=== PATIENT | female | born 1950 | race African-American/Black ===

== ENCOUNTER 2019-05-26 20:04 | Observation (INO) ==
[2019-05-26 20:30] LABS: Basophils % 0.4 % (0.0-0.8); Eosinophils % 0.3 % (0.00-10.9); Hematocrit 33.3 VOL% (35.7-47.0); Hemoglobin 10.9 GM/DL (12.0-16.0); Immature Granulocytes Absolute 0.07 #; Lymphocytes # 1.4 10*3/uL (1.4-4.0); Lymphocytes % 18.7 % (21.3-54.2); Mean Corpuscular HGB Conc 32.7 GM/DL (32-36); Mean Platelet Volume 9.8 FL (9.6-12.0); Monocytes % 5.9 % (1.7-12.7); NRBC # 0.06 10*3/uL; Neutrophils % 73.7 % (38.7-73.9); Platelet Count 271 T/CUMM (130-400); Red Blood Count 3.33 MC/CUMM (3.8-5.5); White Blood Count 7.3 T/CUMM (4-12)
[2019-05-26 21:16] LABS: Alanine Aminotransferase 29 U/L (13-56); Alkaline Phosphatase 30 U/L (45-117); Aspartate Amino Transferase 26 U/L (0-37); Blood Urea Nitrogen 24 MG/DL (7-18); Calcium 9.8 MG/DL (8.5-10.1); Estimated Glom Filtration Rate 33 ML/MIN; Glucose 103 MG/DL (74-106)
[2019-05-26 21:19] LABS: Troponin I 0.086 NG/ML (0.00-0.045)
[2019-05-26] MEDS ORDERED: ENOXAPARIN 100 MG/ML SYRINGE SUBCUT ONE (21:29)
[2019-05-26] MEDS ORDERED: ALBUTEROL/IPRATROPIUM 3 ML NEB RESP TX STA (21:29)
[2019-05-26] MEDS ORDERED: ONDANSETRON 4 MG/2 ML VIAL IV PRN (21:38)
[2019-05-26] MEDS ORDERED: ACETAMINOPHEN 325 MG TABLET PO PRN (21:38)
[2019-05-26] MEDS ORDERED: SIMVASTATIN 10 MG TABLET PO SCH (23:30)
[2019-05-27] MEDS: DILTIAZEM CD 120 MG CAPSULE PO SCH ×2 (00:19→11:15)
[2019-05-27] MEDS: cycloSPORINE OPH EMUL 1 VIAL BOTH EYES SCH ×2 (00:20→11:17)
[2019-05-27 06:51] LABS: Basophils % 0.3 % (0.0-0.8); Eosinophils % 0.6 % (0.00-10.9); Hematocrit 31.6 VOL% (35.7-47.0); Hemoglobin 10.3 GM/DL (12.0-16.0); Immature Granulocytes % 0.8 %; Immature Granulocytes Absolute 0.06 #; Lymphocytes # 2.6 10*3/uL (1.4-4.0); Lymphocytes % 35.8 % (21.3-54.2); Mean Corpuscular HGB Conc 32.6 GM/DL (32-36); Mean Platelet Volume 9.6 FL (9.6-12.0); Monocytes % 5.9 % (1.7-12.7); NRBC # 0.03 10*3/uL; Neutrophils % 56.6 % (38.7-73.9); Platelet Count 241 T/CUMM (130-400); Red Blood Count 3.16 MC/CUMM (3.8-5.5); Red Cell Distribution Width 13.2 % (9.3-17.3); White Blood Count 7.2 T/CUMM (4-12)
[2019-05-27 07:14] LABS: Albumin 3.6 G/DL (3.4-5.0); Bilirubin,Total 0.5 MG/DL (0.2-1.0); Calcium 8.9 MG/DL (8.5-10.1); Osmolality,Calculated 290.7 MOS/KG (273-304); Risk Ratio 2.45; Total Protein 6.6 G/DL (6.4-8.3); VLDL CHOLESTEROL 34.2 MG/DL
[2019-05-27] MEDS ORDERED: carvediloL 25 MG TABLET PO SCH (08:00)
[2019-05-27 08:11] VITALS: BP 151/86
[2019-05-27] MEDS ORDERED: predniSONE 5 MG TABLET PO SCH (09:00)
[2019-05-27] MEDS ORDERED: METHOCARBAMOL 500 MG TABLET PO SCH (09:00)
[2019-05-27] MEDS ORDERED: DROXIDOPA 200 MG PO SCH (09:00)
[2019-05-27] MEDS ORDERED: AMITRIPTYLINE 50 MG TABLET PO SCH (09:00)
[2019-05-27] MEDS ORDERED: MONTELUKAST 10 MG TABLET PO SCH (09:00)
[2019-05-27] MEDS ORDERED: ESCITALOPRAM 10 MG TABLET PO SCH (09:00)
[2019-05-27] MEDS ORDERED: METOCLOPRAMIDE 5 MG TABLET PO SCH (09:00)
[2019-05-27] MEDS ORDERED: DULoxetine 30 MG CAPSULE PO SCH (09:00)
[2019-05-27] MEDS ORDERED: PILOCARPINE 5 MG TABLET PO SCH (09:00)
[2019-05-27] MEDS ORDERED: PANTOPRAZOLE 40 MG TABLET PO SCH (09:00)
[2019-05-27] MEDS ORDERED: PYRIDOSTIGMINE 60 MG TABLET PO SCH (09:00)
[2019-05-27] MEDS ORDERED: ALLOPURINOL 300 MG TABLET PO SCH (09:00)
[2019-05-27] MEDS ORDERED: REGADENOSON 0.4 MG/5 ML SYRINGE IV ONE (09:53)
== END 2019-05-27 14:34 | disposition home or self-care (01) ==
LOC: N.ED 20:04 → N.EDINP 21:38 → INTOOBSV 21:38 → N.TELES 22:50
PROVIDERS: ADMIT Hospitalist; ATTEND Hospitalist

== ENCOUNTER 2019-05-27 18:26 | Inpatient (IN) ==
[2019-05-27] MEDS ORDERED: DOCUSATE SODIUM 100 MG CAPSULE PO PRN (19:03)
[2019-05-27] MEDS ORDERED: ONDANSETRON 4 MG/2 ML VIAL IV PRN (19:03)
[2019-05-27] MEDS ORDERED: ACETAMINOPHEN 325 MG TABLET PO PRN (19:03)
[2019-05-27 20:16] LABS: Basophils % 0.2 % (0.0-0.8); Eosinophils % 0.2 % (0.00-10.9); Hematocrit 31.4 VOL% (35.7-47.0); Hemoglobin 10.3 GM/DL (12.0-16.0); Immature Granulocytes % 0.7 %; Immature Granulocytes Absolute 0.06 #; Lymphocytes # 1.6 10*3/uL (1.4-4.0); Lymphocytes % 19.4 % (21.3-54.2); Mean Corpuscular HGB Conc 32.8 GM/DL (32-36); Mean Platelet Volume 10.2 FL (9.6-12.0); Monocytes % 6.6 % (1.7-12.7); NRBC # 0.07 10*3/uL; Neutrophils % 72.9 % (38.7-73.9); Platelet Count 269 T/CUMM (130-400); Red Blood Count 3.14 MC/CUMM (3.8-5.5); Red Cell Distribution Width 13.5 % (9.3-17.3); White Blood Count 8.3 T/CUMM (4-12)
[2019-05-27 20:39] LABS: Alanine Aminotransferase 30 U/L (13-56); Albumin 3.8 G/DL (3.4-5.0); Alkaline Phosphatase 28 U/L (45-117); Aspartate Amino Transferase 26 U/L (0-37); Bilirubin,Total < 0.39 MG/DL (0.2-1.0); Blood Urea Nitrogen 27 MG/DL (7-18); Estimated Glom Filtration Rate 34 ML/MIN; Glucose 107 MG/DL (74-106); Osmolality,Calculated 287.1 MOS/KG (273-304); Total Protein 6.9 G/DL (6.4-8.3)
[2019-05-27] MEDS: cycloSPORINE OPH EMUL 1 VIAL BOTH EYES SCH (21:32)
[2019-05-27] MEDS: DILTIAZEM CD 120 MG CAPSULE PO SCH (21:32)
[2019-05-27] MEDS: METOCLOPRAMIDE 5 MG TABLET PO SCH (21:33)
[2019-05-27] MEDS: carvediloL 25 MG TABLET PO SCH (21:33)
[2019-05-27] MEDS: SIMVASTATIN 10 MG TABLET PO SCH (21:34)
[2019-05-28] MEDS: SODIUM CHLORIDE 0.9% 1,000 ML IV SCH ×3 (05:11→19:01)
[2019-05-28 05:31] LABS: Basophils % 0.5 % (0.0-0.8); Eosinophils % 0.5 % (0.00-10.9); Hematocrit 31.2 VOL% (35.7-47.0); Hemoglobin 10.2 GM/DL (12.0-16.0); Immature Granulocytes % 0.9 %; Immature Granulocytes Absolute 0.07 #; Lymphocytes # 2.7 10*3/uL (1.4-4.0); Mean Corpuscular HGB Conc 32.7 GM/DL (32-36); Mean Platelet Volume 9.8 FL (9.6-12.0); Monocytes % 7.6 % (1.7-12.7); NRBC # 0.05 10*3/uL; Neutrophils % 56.5 % (38.7-73.9); Platelet Count 244 T/CUMM (130-400); Red Blood Count 3.09 MC/CUMM (3.8-5.5); Red Cell Distribution Width 13.5 % (9.3-17.3)
[2019-05-28 05:53] LABS: Albumin 3.6 G/DL (3.4-5.0); Bilirubin,Total 0.4 MG/DL (0.2-1.0); Calcium 9.2 MG/DL (8.5-10.1); Total Protein 6.5 G/DL (6.4-8.3)
[2019-05-28] MEDS ORDERED: DROXIDOPA PO SCH (09:00)
[2019-05-28] MEDS ORDERED: PILOCARPINE 5 MG TABLET PO SCH (09:00)
[2019-05-28] MEDS: carvediloL 25 MG TABLET PO SCH ×2 (09:32→17:06)
[2019-05-28] MEDS: AMITRIPTYLINE 50 MG TABLET PO SCH (09:32)
[2019-05-28] MEDS: METOCLOPRAMIDE 5 MG TABLET PO SCH ×2 (09:32→17:06)
[2019-05-28] MEDS: METHOCARBAMOL 500 MG TABLET PO SCH (09:33)
[2019-05-28] MEDS: ESCITALOPRAM 10 MG TABLET PO SCH (09:33)
[2019-05-28] MEDS: DULoxetine 30 MG CAPSULE PO SCH (09:33)
[2019-05-28] MEDS: PANTOPRAZOLE 40 MG TABLET PO SCH (09:33)
[2019-05-28] MEDS: DILTIAZEM CD 120 MG CAPSULE PO SCH ×2 (09:33→21:00)
[2019-05-28] MEDS: ALLOPURINOL 300 MG TABLET PO SCH (09:34)
[2019-05-28] MEDS: predniSONE 5 MG TABLET PO SCH (09:34)
[2019-05-28] MEDS: PYRIDOSTIGMINE 60 MG TABLET PO SCH (09:34)
[2019-05-28] MEDS: MONTELUKAST 10 MG TABLET PO SCH (09:34)
[2019-05-28] MEDS: ENOXAPARIN 40 MG/0.4 ML SYRINGE SUBCUT SCH (09:34)
[2019-05-28] MEDS: cycloSPORINE OPH EMUL 1 VIAL BOTH EYES SCH ×2 (09:38→20:59)
[2019-05-28] MEDS: APIXABAN 5 MG TABLET PO SCH ×2 (11:00→21:00)
[2019-05-28] MEDS: PILOCARPINE 5 MG TABLET PO SCH ×3 (16:04→21:01)
[2019-05-28] MEDS: SIMVASTATIN 10 MG TABLET PO SCH (21:00)
[2019-05-28] MEDS: DROXIDOPA 200 MG PO SCH (21:01)
[2019-05-29 07:52] LABS: Basophils % 0.4 % (0.0-0.8); Eosinophils # 0.1 10*3/uL (0.0-0.87); Hematocrit 30.9 VOL% (35.7-47.0); Hemoglobin 10.1 GM/DL (12.0-16.0); Immature Granulocytes Absolute 0.07 #; Lymphocytes # 2.3 10*3/uL (1.4-4.0); Lymphocytes % 32.8 % (21.3-54.2); Mean Corpuscular HGB Conc 32.7 GM/DL (32-36); Mean Corpuscular Volume 100.3 FL (87-102); Mean Platelet Volume 10.1 FL (9.6-12.0); NRBC # 0.04 10*3/uL; Neutrophils % 55.8 % (38.7-73.9); Platelet Count 259 T/CUMM (130-400); Red Blood Count 3.08 MC/CUMM (3.8-5.5)
[2019-05-29 08:14] LABS: Calcium 8.9 MG/DL (8.5-10.1); Osmolality,Calculated 290.6 MOS/KG (273-304)
[2019-05-29] MEDS ORDERED: FUROSEMIDE 20 MG TABLET PO SCH (09:00)
[2019-05-29] MEDS: PILOCARPINE 5 MG TABLET PO SCH ×2 (09:30→13:57)
[2019-05-29] MEDS: DROXIDOPA 200 MG PO SCH (09:30)
[2019-05-29] MEDS: APIXABAN 5 MG TABLET PO SCH (09:31)
[2019-05-29] MEDS: PANTOPRAZOLE 40 MG TABLET PO SCH (09:31)
[2019-05-29] MEDS: ALLOPURINOL 300 MG TABLET PO SCH (09:31)
[2019-05-29] MEDS: DULoxetine 30 MG CAPSULE PO SCH (09:31)
[2019-05-29] MEDS: METHOCARBAMOL 500 MG TABLET PO SCH (09:32)
[2019-05-29] MEDS: METOCLOPRAMIDE 5 MG TABLET PO SCH (09:32)
[2019-05-29] MEDS: PYRIDOSTIGMINE 60 MG TABLET PO SCH (09:32)
[2019-05-29] MEDS: MONTELUKAST 10 MG TABLET PO SCH (09:32)
[2019-05-29] MEDS: AMITRIPTYLINE 50 MG TABLET PO SCH (09:32)
[2019-05-29] MEDS: carvediloL 25 MG TABLET PO SCH (09:32)
[2019-05-29] MEDS: DILTIAZEM CD 120 MG CAPSULE PO SCH (09:32)
[2019-05-29] MEDS: ESCITALOPRAM 10 MG TABLET PO SCH (09:33)
[2019-05-29] MEDS: predniSONE 5 MG TABLET PO SCH (09:33)
[2019-05-29] MEDS: ENOXAPARIN 40 MG/0.4 ML SYRINGE SUBCUT SCH (09:33)
[2019-05-29] MEDS: cycloSPORINE OPH EMUL 1 VIAL BOTH EYES SCH (09:44)
[2019-05-29 13:08] VITALS: BP 119/64
== END 2019-05-29 13:53 | disposition home or self-care (01) | DRG 176 ==
LOC: N.TELEN
PROVIDERS: ADMIT Hospitalist; ATTEND Hospitalist

== ENCOUNTER 2019-08-18 16:20 | Inpatient (IN) ==
[2019-08-18] MEDS ORDERED: PANTOPRAZOLE 40 MG VIAL IV STA (17:34)
[2019-08-18] MEDS ORDERED: METOCLOPRAMIDE 10 MG/2 ML VIAL IV STA (17:34)
[2019-08-18] MEDS ORDERED: ONDANSETRON 4 MG/2 ML VIAL IV STA (17:34)
[2019-08-18] MEDS ORDERED: ALUM/MAG/SIMETH/LIDO VISC 1:1 30 ML BOTTLE PO STA (17:34)
[2019-08-18] MEDS ORDERED: SODIUM CHLORIDE 0.9% 1,000 ML IV STA (17:34)
[2019-08-18 17:47] LABS: Albumin 3.6 G/DL (3.4-5.0); Bilirubin,Total 0.8 MG/DL (0.2-1.0); Calcium 9.6 MG/DL (8.5-10.1); Osmolality,Calculated 285.3 MOS/KG (273-304); Total Protein 6.6 G/DL (6.4-8.3)
[2019-08-18 17:48] LABS: Basophils % 0.4 % (0.0-0.8); Eosinophils % 0.1 % (0.00-10.9); Hematocrit 33.5 VOL% (35.7-47.0); Hemoglobin 10.9 GM/DL (12.0-16.0); Immature Granulocytes % 0.4 %; Immature Granulocytes Absolute 0.03 #; Lymphocytes # 1.1 10*3/uL (1.4-4.0); Mean Corpuscular HGB Conc 32.5 GM/DL (32-36); Mean Corpuscular Volume 101.2 FL (87-102); Mean Platelet Volume 9.9 FL (9.6-12.0); Monocytes % 5.3 % (1.7-12.7); Neutrophils % 79.8 % (38.7-73.9); Platelet Count 292 T/CUMM (130-400); Red Blood Count 3.31 MC/CUMM (3.8-5.5); Red Cell Distribution Width 14.4 % (9.3-17.3); White Blood Count 7.6 T/CUMM (4-12)
[2019-08-18 18:02] LABS: Amylase 90 U/L (25-115); Troponin I < 0.015 NG/ML (0.00-0.045)
[2019-08-18] MEDS ORDERED: hydrALAZINE 20 MG/1 ML VIAL IV PRN (19:57)
[2019-08-18] MEDS ORDERED: cycloSPORINE OPH EMUL 1 VIAL BOTH EYES SCH (20:00)
[2019-08-18] MEDS ORDERED: ENOXAPARIN 30 MG/0.3 ML SYRINGE SUBCUT SCH (20:00)
[2019-08-18 20:55] LABS: Apearance,Urine CLEAR (Clear); Bacteria,Urine Occasional /HPF (Few); Bilirubin,Urine Negative (Negative); Blood, Urine Negative (Negative); Calcium Oxalate Crystals,Urine Occasional /HPF (Few); Glucose,Urine (UA) Negative (Negative); Ketones,Urine Negative (Negative); Mucus,Urine Occasional /LPF (Occasional); Nitrite,Urine Negative (Negative); Protein,Urine Negative; RBC,Urine 2 /HPF (0-4); Squamous Epithelial Cell,Urine Occasional /HPF (0-10); Urine Color Amber (Yellow); Urine Specific Gravity 1.025 (1.001-1.035); Urine Urobilinogen < 2.0 EU/DL (0.2-1.0); WBC,Urine 3 /HPF (0-6)
[2019-08-18 21:02] LABS: Thyroid Stimulating Hormone 0.909 uIU/ml (0.358-3.74)
[2019-08-18] MEDS: MORPHINE 4 MG/1 ML VIAL IV PRN (21:02)
[2019-08-18] MEDS: AMITRIPTYLINE 50 MG TABLET PO SCH (22:59)
[2019-08-18] MEDS: DILTIAZEM CD 120 MG CAPSULE PO SCH (22:59)
[2019-08-18] MEDS: SIMVASTATIN 10 MG TABLET PO SCH (22:59)
[2019-08-18] MEDS: APIXABAN 5 MG TABLET PO SCH (22:59)
[2019-08-18] MEDS: SODIUM CHLORIDE 0.9% 1,000 ML IV SCH (23:00)
[2019-08-18] MEDS: carvediloL 25 MG TABLET PO SCH (23:00)
[2019-08-18] MEDS: cycloSPORINE OPH EMUL 1 VIAL BOTH EYES SCH (23:00)
[2019-08-18] MEDS: PILOCARPINE 5 MG TABLET PO SCH (23:02)
[2019-08-19] MEDS: MORPHINE 4 MG/1 ML VIAL IV PRN ×5 (02:20→22:31)
[2019-08-19] MEDS: LEVOTHYROXINE 50 MCG TABLET PO SCH (05:41)
[2019-08-19] MEDS: SODIUM CHLORIDE 0.9% 1,000 ML IV SCH (06:01)
[2019-08-19 06:39] LABS: Basophils % 0.3 % (0.0-0.8); Eosinophils # 0.1 10*3/uL (0.0-0.87); Hematocrit 27.8 VOL% (35.7-47.0); Immature Granulocytes % 0.3 %; Immature Granulocytes Absolute 0.02 #; Lymphocytes % 32.4 % (21.3-54.2); Mean Corpuscular HGB Conc 32.4 GM/DL (32-36); Mean Corpuscular Volume 100.4 FL (87-102); Mean Platelet Volume 9.9 FL (9.6-12.0); Monocytes % 11.1 % (1.7-12.7); Neutrophils % 54.9 % (38.7-73.9); Platelet Count 218 T/CUMM (130-400); Red Blood Count 2.77 MC/CUMM (3.8-5.5); Red Cell Distribution Width 14.8 % (9.3-17.3); White Blood Count 6.1 T/CUMM (4-12)
[2019-08-19 06:59] LABS: Albumin 2.8 G/DL (3.4-5.0); Bilirubin,Total 1.1 MG/DL (0.2-1.0); Calcium 8.6 MG/DL (8.5-10.1); Osmolality,Calculated 287.8 MOS/KG (273-304); Risk Ratio 1.81; Total Protein 5.3 G/DL (6.4-8.3); VLDL CHOLESTEROL 9.6 MG/DL
[2019-08-19] MEDS: cycloSPORINE OPH EMUL 1 VIAL BOTH EYES SCH ×2 (09:01→22:24)
[2019-08-19] MEDS: APIXABAN 5 MG TABLET PO SCH ×2 (09:02→22:22)
[2019-08-19] MEDS: PILOCARPINE 5 MG TABLET PO SCH ×3 (09:02→22:24)
[2019-08-19] MEDS: DILTIAZEM CD 120 MG CAPSULE PO SCH ×2 (09:02→22:23)
[2019-08-19] MEDS: PYRIDOSTIGMINE 60 MG TABLET PO SCH (09:03)
[2019-08-19] MEDS: predniSONE 5 MG TABLET PO SCH (09:03)
[2019-08-19] MEDS: carvediloL 25 MG TABLET PO SCH ×2 (09:03→22:22)
[2019-08-19] MEDS: ESCITALOPRAM 10 MG TABLET PO SCH (09:03)
[2019-08-19] MEDS ORDERED: MAGNESIUM SULF RIDER 4 GM in PREMIX 1 EACH IV PRN (09:33)
[2019-08-19] MEDS: ONDANSETRON 4 MG/2 ML VIAL IV PRN ×2 (10:40→22:24)
[2019-08-19] MEDS: NORTHERA PO SCH (13:55)
[2019-08-19] MEDS: DEXTROSE 5% NACL 0.9% 1,000 ML IV SCH ×2 (15:58→22:21)
[2019-08-19] MEDS: AMITRIPTYLINE 50 MG TABLET PO SCH (22:23)
[2019-08-19] MEDS: SIMVASTATIN 10 MG TABLET PO SCH (22:23)
[2019-08-20] MEDS: LEVOTHYROXINE 50 MCG TABLET PO SCH (06:52)
[2019-08-20] MEDS: DEXTROSE 5% NACL 0.9% 1,000 ML IV SCH ×4 (06:54→23:57)
[2019-08-20] MEDS: PILOCARPINE 5 MG TABLET PO SCH ×5 (09:00→21:10)
[2019-08-20] MEDS: ESCITALOPRAM 10 MG TABLET PO SCH (09:15)
[2019-08-20] MEDS: DILTIAZEM CD 120 MG CAPSULE PO SCH ×2 (09:15→21:09)
[2019-08-20] MEDS: PYRIDOSTIGMINE 60 MG TABLET PO SCH (09:15)
[2019-08-20] MEDS: carvediloL 25 MG TABLET PO SCH ×2 (09:15→21:10)
[2019-08-20] MEDS: predniSONE 5 MG TABLET PO SCH (09:16)
[2019-08-20] MEDS: APIXABAN 5 MG TABLET PO SCH (09:16)
[2019-08-20] MEDS: cycloSPORINE OPH EMUL 1 VIAL BOTH EYES SCH ×2 (09:18→21:11)
[2019-08-20] MEDS: MORPHINE 4 MG/1 ML VIAL IV PRN (09:36)
[2019-08-20] MEDS: SODIUM CHLORIDE 0.9% 1,000 ML IV SCH (10:31)
[2019-08-20] MEDS: NORTHERA PO SCH (10:31)
[2019-08-20] MEDS: HYDROmorphone 2 MG/1 ML VIAL IV PRN ×2 (14:53→21:13)
[2019-08-20] MEDS: ONDANSETRON 4 MG/2 ML VIAL IV PRN (21:09)
[2019-08-20] MEDS: SIMVASTATIN 10 MG TABLET PO SCH (21:10)
[2019-08-20] MEDS: AMITRIPTYLINE 50 MG TABLET PO SCH (21:10)
[2019-08-21] MEDS: ONDANSETRON 4 MG/2 ML VIAL IV PRN ×2 (05:28→18:39)
[2019-08-21] MEDS: LEVOTHYROXINE 50 MCG TABLET PO SCH (05:29)
[2019-08-21] MEDS: HYDROmorphone 2 MG/1 ML VIAL IV PRN ×4 (05:32→18:39)
[2019-08-21 06:22] LABS: Basophils % 0.1 % (0.0-0.8); Eosinophils # 0.1 10*3/uL (0.0-0.87); Eosinophils % 0.9 % (0.00-10.9); Hematocrit 26.7 VOL% (35.7-47.0); Hemoglobin 8.3 GM/DL (12.0-16.0); Immature Granulocytes % 0.5 %; Immature Granulocytes Absolute 0.04 #; Lymphocytes # 1.2 10*3/uL (1.4-4.0); Lymphocytes % 13.8 % (21.3-54.2); Mean Corpuscular HGB Conc 31.1 GM/DL (32-36); Mean Corpuscular Volume 104.7 FL (87-102); Mean Platelet Volume 10.2 FL (9.6-12.0); Monocytes % 8.6 % (1.7-12.7); Neutrophils % 76.1 % (38.7-73.9); Platelet Count 147 T/CUMM (130-400); Red Blood Count 2.55 MC/CUMM (3.8-5.5); Red Cell Distribution Width 14.7 % (9.3-17.3); White Blood Count 8.8 T/CUMM (4-12)
[2019-08-21 06:42] LABS: Albumin 2.2 G/DL (3.4-5.0); Bilirubin,Total 1.5 MG/DL (0.2-1.0); Calcium 8.1 MG/DL (8.5-10.1); Osmolality,Calculated 285.7 MOS/KG (273-304)
[2019-08-21] MEDS: DEXTROSE 5% NACL 0.9% 1,000 ML IV SCH ×3 (09:30→20:57)
[2019-08-21] MEDS: predniSONE 5 MG TABLET PO SCH (09:31)
[2019-08-21] MEDS: carvediloL 25 MG TABLET PO SCH ×2 (09:31→20:56)
[2019-08-21] MEDS: PYRIDOSTIGMINE 60 MG TABLET PO SCH (09:31)
[2019-08-21] MEDS: cycloSPORINE OPH EMUL 1 VIAL BOTH EYES SCH ×2 (09:32→21:00)
[2019-08-21] MEDS: ESCITALOPRAM 10 MG TABLET PO SCH (09:32)
[2019-08-21] MEDS: PILOCARPINE 5 MG TABLET PO SCH ×4 (09:32→21:00)
[2019-08-21] MEDS: DILTIAZEM CD 120 MG CAPSULE PO SCH ×2 (09:32→20:56)
[2019-08-21] MEDS: NORTHERA PO SCH (09:33)
[2019-08-21] MEDS: POTASSIUM CHLORIDE RIDER 10 MEQ in PREMIX 1 EACH IV SCH ×3 (09:34→13:21)
[2019-08-21] MEDS: AMITRIPTYLINE 50 MG TABLET PO SCH (20:56)
[2019-08-21] MEDS ORDERED: ENOXAPARIN 30 MG/0.3 ML SYRINGE SUBCUT SCH (21:00)
[2019-08-22] MEDS: ONDANSETRON 4 MG/2 ML VIAL IV PRN ×6 (01:09→23:57)
[2019-08-22] MEDS: HYDROmorphone 2 MG/1 ML VIAL IV PRN ×6 (01:15→23:56)
[2019-08-22] MEDS: DEXTROSE 5% NACL 0.9% 1,000 ML IV SCH ×3 (05:00→20:27)
[2019-08-22] MEDS: LEVOTHYROXINE 50 MCG TABLET PO SCH (06:02)
[2019-08-22 06:06] LABS: Basophils % 0.2 % (0.0-0.8); Eosinophils # 0.1 10*3/uL (0.0-0.87); Eosinophils % 0.9 % (0.00-10.9); Hematocrit 24.9 VOL% (35.7-47.0); Hemoglobin 8.2 GM/DL (12.0-16.0); Immature Granulocytes % 0.5 %; Immature Granulocytes Absolute 0.04 #; Lymphocytes # 1.2 10*3/uL (1.4-4.0); Lymphocytes % 14.1 % (21.3-54.2); Mean Corpuscular HGB Conc 32.9 GM/DL (32-36); Monocytes % 8.8 % (1.7-12.7); Neutrophils % 75.5 % (38.7-73.9); Platelet Count 152 T/CUMM (130-400); Red Blood Count 2.49 MC/CUMM (3.8-5.5); Red Cell Distribution Width 14.8 % (9.3-17.3); White Blood Count 8.7 T/CUMM (4-12)
[2019-08-22 06:36] LABS: Albumin 2.4 G/DL (3.4-5.0); Bilirubin,Total 0.5 MG/DL (0.2-1.0); Calcium 8.1 MG/DL (8.5-10.1); Osmolality,Calculated 282.8 MOS/KG (273-304); Total Protein 5.3 G/DL (6.4-8.3)
[2019-08-22 07:05] LABS: Calcium 8.4 MG/DL (8.5-10.1); Osmolality,Calculated 281.8 MOS/KG (273-304)
[2019-08-22] MEDS: PILOCARPINE 5 MG TABLET PO SCH ×4 (08:51→20:26)
[2019-08-22] MEDS: cycloSPORINE OPH EMUL 1 VIAL BOTH EYES SCH ×2 (08:51→20:24)
[2019-08-22] MEDS: predniSONE 5 MG TABLET PO SCH (08:51)
[2019-08-22] MEDS: DILTIAZEM CD 120 MG CAPSULE PO SCH ×2 (08:52→20:24)
[2019-08-22] MEDS: carvediloL 25 MG TABLET PO SCH ×2 (08:54→20:25)
[2019-08-22] MEDS: PYRIDOSTIGMINE 60 MG TABLET PO SCH (08:54)
[2019-08-22] MEDS: ESCITALOPRAM 10 MG TABLET PO SCH (08:54)
[2019-08-22] MEDS: NORTHERA PO SCH (08:55)
[2019-08-22] MEDS: METOCLOPRAMIDE 10 MG/2 ML VIAL IV SCH ×2 (15:28→21:24)
[2019-08-22] MEDS: AMITRIPTYLINE 50 MG TABLET PO SCH (20:25)
[2019-08-22] MEDS: ENOXAPARIN 40 MG/0.4 ML SYRINGE SUBCUT SCH (20:31)
[2019-08-23] MEDS: HYDROmorphone 2 MG/1 ML VIAL IV PRN ×5 (03:24→20:12)
[2019-08-23] MEDS: DEXTROSE 5% NACL 0.9% 1,000 ML IV SCH ×4 (03:24→22:25)
[2019-08-23] MEDS: ONDANSETRON 4 MG/2 ML VIAL IV PRN ×2 (03:25→14:36)
[2019-08-23] MEDS: METOCLOPRAMIDE 10 MG/2 ML VIAL IV SCH ×4 (03:38→22:00)
[2019-08-23] MEDS: LEVOTHYROXINE 50 MCG TABLET PO SCH (06:17)
[2019-08-23 08:00] LABS: Basophils % 0.2 % (0.0-0.8); Eosinophils # 0.1 10*3/uL (0.0-0.87); Eosinophils % 0.9 % (0.00-10.9); Hematocrit 25.9 VOL% (35.7-47.0); Hemoglobin 8.1 GM/DL (12.0-16.0); Immature Granulocytes % 0.7 %; Immature Granulocytes Absolute 0.06 #; Lymphocytes # 1.3 10*3/uL (1.4-4.0); Lymphocytes % 14.7 % (21.3-54.2); Mean Corpuscular HGB Conc 31.3 GM/DL (32-36); Mean Platelet Volume 10.5 FL (9.6-12.0); Monocytes % 10.3 % (1.7-12.7); Neutrophils % 73.2 % (38.7-73.9); Platelet Count 197 T/CUMM (130-400); Red Blood Count 2.54 MC/CUMM (3.8-5.5); Red Cell Distribution Width 14.8 % (9.3-17.3); White Blood Count 8.6 T/CUMM (4-12)
[2019-08-23 08:50] LABS: Albumin 2.1 G/DL (3.4-5.0); Bilirubin,Total 0.4 MG/DL (0.2-1.0); Calcium 8.4 MG/DL (8.5-10.1); Osmolality,Calculated 278.1 MOS/KG (273-304); Total Protein 5.6 G/DL (6.4-8.3)
[2019-08-23] MEDS: MAGNESIUM SULF RIDER 2 GM in PREMIX 1 EACH IV PRN (09:24)
[2019-08-23] MEDS: DILTIAZEM CD 120 MG CAPSULE PO SCH ×2 (09:54→20:12)
[2019-08-23] MEDS: NORTHERA PO SCH (09:54)
[2019-08-23] MEDS: PILOCARPINE 5 MG TABLET PO SCH ×4 (09:54→20:21)
[2019-08-23] MEDS: predniSONE 5 MG TABLET PO SCH (09:55)
[2019-08-23] MEDS: PYRIDOSTIGMINE 60 MG TABLET PO SCH (09:55)
[2019-08-23] MEDS: cycloSPORINE OPH EMUL 1 VIAL BOTH EYES SCH ×2 (09:57→20:21)
[2019-08-23] MEDS: ESCITALOPRAM 10 MG TABLET PO SCH (09:57)
[2019-08-23] MEDS: carvediloL 25 MG TABLET PO SCH ×2 (10:00→20:11)
[2019-08-23] MEDS: POTASSIUM CHLORIDE 20 MEQ TABLET PO SCH ×2 (14:23→17:29)
[2019-08-23] MEDS: ENOXAPARIN 40 MG/0.4 ML SYRINGE SUBCUT SCH (20:11)
[2019-08-23] MEDS: AMITRIPTYLINE 50 MG TABLET PO SCH (20:15)
[2019-08-24] MEDS: HYDROmorphone 2 MG/1 ML VIAL IV PRN ×6 (01:19→22:32)
[2019-08-24] MEDS: METOCLOPRAMIDE 10 MG/2 ML VIAL IV SCH ×4 (03:47→22:29)
[2019-08-24] MEDS: DEXTROSE 5% NACL 0.9% 1,000 ML IV SCH ×4 (03:47→17:13)
[2019-08-24 04:08] LABS: Basophils % 0.3 % (0.0-0.8); Eosinophils # 0.1 10*3/uL (0.0-0.87); Hematocrit 24.4 VOL% (35.7-47.0); Hemoglobin 7.4 GM/DL (12.0-16.0); Immature Granulocytes % 0.8 %; Immature Granulocytes Absolute 0.06 #; Lymphocytes # 1.3 10*3/uL (1.4-4.0); Lymphocytes % 16.1 % (21.3-54.2); Mean Corpuscular HGB Conc 30.3 GM/DL (32-36); Mean Platelet Volume 10.7 FL (9.6-12.0); Monocytes % 11.1 % (1.7-12.7); Neutrophils % 70.7 % (38.7-73.9); Platelet Count 218 T/CUMM (130-400); Red Blood Count 2.37 MC/CUMM (3.8-5.5); Red Cell Distribution Width 15.3 % (9.3-17.3); White Blood Count 7.8 T/CUMM (4-12)
[2019-08-24 04:45] LABS: Calcium 8.5 MG/DL (8.5-10.1); Osmolality,Calculated 282.7 MOS/KG (273-304)
[2019-08-24 04:47] LABS: Albumin 2.1 G/DL (3.4-5.0); Calcium 8.1 MG/DL (8.5-10.1); Osmolality,Calculated 284.6 MOS/KG (273-304); Total Protein 5.2 G/DL (6.4-8.3)
[2019-08-24] MEDS: LEVOTHYROXINE 50 MCG TABLET PO SCH (05:39)
[2019-08-24] MEDS: ESCITALOPRAM 10 MG TABLET PO SCH (08:46)
[2019-08-24] MEDS: carvediloL 25 MG TABLET PO SCH ×2 (08:46→20:01)
[2019-08-24] MEDS: predniSONE 5 MG TABLET PO SCH (08:46)
[2019-08-24] MEDS: PILOCARPINE 5 MG TABLET PO SCH ×4 (08:47→20:01)
[2019-08-24] MEDS: DILTIAZEM CD 120 MG CAPSULE PO SCH ×2 (08:47→20:01)
[2019-08-24] MEDS: cycloSPORINE OPH EMUL 1 VIAL BOTH EYES SCH ×2 (08:47→20:01)
[2019-08-24] MEDS: PYRIDOSTIGMINE 60 MG TABLET PO SCH (08:47)
[2019-08-24] MEDS: NORTHERA PO SCH (08:47)
[2019-08-24] MEDS: ONDANSETRON 4 MG/2 ML VIAL IV PRN ×2 (15:26→22:28)
[2019-08-24] MEDS: AMITRIPTYLINE 50 MG TABLET PO SCH (20:01)
[2019-08-25] MEDS: ONDANSETRON 4 MG/2 ML VIAL IV PRN ×3 (03:00→21:36)
[2019-08-25] MEDS: METOCLOPRAMIDE 10 MG/2 ML VIAL IV SCH ×4 (03:02→21:40)
[2019-08-25] MEDS: HYDROmorphone 2 MG/1 ML VIAL IV PRN ×4 (03:03→21:39)
[2019-08-25] MEDS: LEVOTHYROXINE 50 MCG TABLET PO SCH (06:05)
[2019-08-25] MEDS: PILOCARPINE 5 MG TABLET PO SCH ×4 (08:50→21:39)
[2019-08-25] MEDS: ESCITALOPRAM 10 MG TABLET PO SCH (08:50)
[2019-08-25] MEDS: predniSONE 5 MG TABLET PO SCH (08:50)
[2019-08-25] MEDS: PYRIDOSTIGMINE 60 MG TABLET PO SCH (08:50)
[2019-08-25] MEDS: DILTIAZEM CD 120 MG CAPSULE PO SCH ×2 (08:50→21:39)
[2019-08-25] MEDS: NORTHERA PO SCH (08:51)
[2019-08-25] MEDS: cycloSPORINE OPH EMUL 1 VIAL BOTH EYES SCH ×2 (08:52→21:39)
[2019-08-25] MEDS ORDERED: propofoL 200 MG/20 ML VIAL IV ONE (09:00)
[2019-08-25] MEDS ORDERED: LIDOCAINE 100 MG/5 ML SYRINGE ONE (09:00)
[2019-08-25] MEDS: LACTATED RINGERS 1,000 ML IV SCH ×2 (09:14→09:35)
[2019-08-25] MEDS: DEXTROSE 5% NACL 0.9% 1,000 ML IV SCH ×2 (09:14→13:52)
[2019-08-25] MEDS: carvediloL 25 MG TABLET PO SCH ×2 (09:15→21:38)
[2019-08-25 09:46] LABS: Basophils % 0.1 % (0.0-0.8); Eosinophils # 0.1 10*3/uL (0.0-0.87); Eosinophils % 1.3 % (0.00-10.9); Hematocrit 23.7 VOL% (35.7-47.0); Hemoglobin 7.4 GM/DL (12.0-16.0); Immature Granulocytes % 0.8 %; Immature Granulocytes Absolute 0.06 #; Lymphocytes # 1.5 10*3/uL (1.4-4.0); Lymphocytes % 19.6 % (21.3-54.2); Mean Corpuscular HGB Conc 31.2 GM/DL (32-36); Mean Corpuscular Volume 101.7 FL (87-102); Mean Platelet Volume 10.1 FL (9.6-12.0); Monocytes % 10.5 % (1.7-12.7); NRBC # 0.03 10*3/uL; Neutrophils % 67.7 % (38.7-73.9); Platelet Count 307 T/CUMM (130-400); Red Blood Count 2.33 MC/CUMM (3.8-5.5); Red Cell Distribution Width 15.4 % (9.3-17.3); White Blood Count 7.8 T/CUMM (4-12)
[2019-08-25 10:08] LABS: Anisocytosis 2+; Band Neutrophils 7 % (0-10); Eosinophils 1 % (0-10); Lymphocytes 13 % (20-55); Macrocytosis 1+; Platelet Estimate Normal; Poikilocytosis Slight; Polychromasia Slight; Segmented Neutrophils 71 % (50-85); Total Cells Counted 100
[2019-08-25 10:08] LABS: Bilirubin,Total 0.7 MG/DL (0.2-1.0); Calcium 8.6 MG/DL (8.5-10.1); Osmolality,Calculated 279.8 MOS/KG (273-304); Total Protein 5.6 G/DL (6.4-8.3)
[2019-08-25 10:09] LABS: Target Cells Few
[2019-08-25] MEDS: POTASSIUM CHLORIDE RIDER 10 MEQ in PREMIX 1 EACH IV PRN ×4 (12:05→16:24)
[2019-08-25] MEDS: AMITRIPTYLINE 50 MG TABLET PO SCH (21:41)
[2019-08-26] MEDS: ONDANSETRON 4 MG/2 ML VIAL IV PRN ×2 (03:05→06:45)
[2019-08-26] MEDS: HYDROmorphone 2 MG/1 ML VIAL IV PRN ×4 (03:06→20:46)
[2019-08-26] MEDS: METOCLOPRAMIDE 10 MG/2 ML VIAL IV SCH ×4 (03:07→22:58)
[2019-08-26] MEDS: DEXTROSE 5% NACL 0.9% 1,000 ML IV SCH ×3 (03:09→19:02)
[2019-08-26 06:21] LABS: Basophils % 0.2 % (0.0-0.8); Eosinophils # 0.1 10*3/uL (0.0-0.87); Eosinophils % 1.2 % (0.00-10.9); Hematocrit 24.8 VOL% (35.7-47.0); Hemoglobin 7.8 GM/DL (12.0-16.0); Immature Granulocytes % 1.7 %; Immature Granulocytes Absolute 0.14 #; Lymphocytes # 1.6 10*3/uL (1.4-4.0); Lymphocytes % 19.8 % (21.3-54.2); Mean Corpuscular HGB Conc 31.5 GM/DL (32-36); Mean Corpuscular Volume 101.6 FL (87-102); Mean Platelet Volume 10.2 FL (9.6-12.0); Monocytes % 9.1 % (1.7-12.7); NRBC # 0.02 10*3/uL; Platelet Count 400 T/CUMM (130-400); Red Blood Count 2.44 MC/CUMM (3.8-5.5)
[2019-08-26 06:43] LABS: Albumin 2.2 G/DL (3.4-5.0); Bilirubin,Total 0.8 MG/DL (0.2-1.0); Calcium 9.3 MG/DL (8.5-10.1); Osmolality,Calculated 277.1 MOS/KG (273-304); Total Protein 6.1 G/DL (6.4-8.3)
[2019-08-26] MEDS: LEVOTHYROXINE 50 MCG TABLET PO SCH (06:48)
[2019-08-26] MEDS: cycloSPORINE OPH EMUL 1 VIAL BOTH EYES SCH ×2 (09:36→20:44)
[2019-08-26] MEDS: NORTHERA PO SCH (09:36)
[2019-08-26] MEDS: MAGNESIUM SULF RIDER 2 GM in PREMIX 1 EACH IV PRN (09:36)
[2019-08-26] MEDS: PILOCARPINE 5 MG TABLET PO SCH ×4 (09:37→20:45)
[2019-08-26] MEDS: PYRIDOSTIGMINE 60 MG TABLET PO SCH (09:37)
[2019-08-26] MEDS: DILTIAZEM CD 120 MG CAPSULE PO SCH ×2 (09:37→20:45)
[2019-08-26] MEDS: ESCITALOPRAM 10 MG TABLET PO SCH (09:38)
[2019-08-26] MEDS: predniSONE 5 MG TABLET PO SCH (09:38)
[2019-08-26] MEDS: carvediloL 25 MG TABLET PO SCH ×2 (09:38→20:45)
[2019-08-26] MEDS: POTASSIUM CHLORIDE RIDER 10 MEQ in PREMIX 1 EACH IV PRN ×4 (11:30→16:33)
[2019-08-26] MEDS: AMITRIPTYLINE 50 MG TABLET PO SCH (20:45)
[2019-08-27] MEDS: DEXTROSE 5% NACL 0.9% 1,000 ML IV SCH ×2 (02:19→02:48)
[2019-08-27] MEDS: METOCLOPRAMIDE 10 MG/2 ML VIAL IV SCH (03:56)
[2019-08-27] MEDS: HYDROmorphone 2 MG/1 ML VIAL IV PRN ×2 (03:56→10:29)
[2019-08-27] MEDS: LEVOTHYROXINE 50 MCG TABLET PO SCH (06:02)
[2019-08-27 06:24] LABS: Basophils % 0.3 % (0.0-0.8); Eosinophils # 0.1 10*3/uL (0.0-0.87); Eosinophils % 1.1 % (0.00-10.9); Hematocrit 23.3 VOL% (35.7-47.0); Hemoglobin 7.3 GM/DL (12.0-16.0); Immature Granulocytes Absolute 0.15 #; Lymphocytes # 1.4 10*3/uL (1.4-4.0); Lymphocytes % 19.1 % (21.3-54.2); Mean Corpuscular HGB Conc 31.3 GM/DL (32-36); Mean Corpuscular Volume 100.9 FL (87-102); Mean Platelet Volume 11.3 FL (9.6-12.0); Monocytes % 8.1 % (1.7-12.7); NRBC # 0.03 10*3/uL; Neutrophils % 69.4 % (38.7-73.9); Red Blood Count 2.31 MC/CUMM (3.8-5.5); Red Cell Distribution Width 15.2 % (9.3-17.3); White Blood Count 7.5 T/CUMM (4-12)
[2019-08-27 06:30] LABS: Platelet Count 254 T/CUMM (130-400)
[2019-08-27 06:50] LABS: Albumin 2.1 G/DL (3.4-5.0); Bilirubin,Total 1.2 MG/DL (0.2-1.0); Calcium 8.9 MG/DL (8.5-10.1); Hypochromasia 2+
[2019-08-27 06:51] LABS: Target Cells Slight
[2019-08-27] MEDS: carvediloL 25 MG TABLET PO SCH (09:42)
[2019-08-27] MEDS: predniSONE 5 MG TABLET PO SCH (09:42)
[2019-08-27] MEDS: DILTIAZEM CD 120 MG CAPSULE PO SCH (09:42)
[2019-08-27] MEDS: ESCITALOPRAM 10 MG TABLET PO SCH (09:43)
[2019-08-27] MEDS: cycloSPORINE OPH EMUL 1 VIAL BOTH EYES SCH (09:44)
[2019-08-27] MEDS: PILOCARPINE 5 MG TABLET PO SCH (09:44)
[2019-08-27] MEDS: PYRIDOSTIGMINE 60 MG TABLET PO SCH (09:44)
[2019-08-27] MEDS: NORTHERA PO SCH (09:44)
[2019-08-27 11:42] VITALS: BP 135/52
[2019-08-27] MEDS ORDERED: POTASSIUM CHLORIDE 20 MEQ TABLET PO ONE (11:50)
== END 2019-08-27 14:20 | disposition home health service (06) | DRG 439 ==
LOC: N.ED 16:20 → N.EDINP 19:54 → SUATTDRO 19:54 → N.5E 20:34
PROVIDERS: ADMIT Family Medicine; ATTEND Family Medicine

== ENCOUNTER 2019-08-31 14:42 | Inpatient (IN) ==
[2019-08-31] MEDS ORDERED: SODIUM CHLORIDE 0.9% 1,000 ML IV STA (15:42)
[2019-08-31] MEDS ORDERED: ONDANSETRON 4 MG/2 ML VIAL IV STA (15:42)
[2019-08-31 16:08] LABS: Basophils % 0.4 % (0.0-0.8); Eosinophils # 0.1 10*3/uL (0.0-0.87); Eosinophils % 0.8 % (0.00-10.9); Hematocrit 27.1 VOL% (35.7-47.0); Hemoglobin 8.7 GM/DL (12.0-16.0); Immature Granulocytes % 6.4 %; Immature Granulocytes Absolute 0.64 #; Lymphocytes # 1.1 10*3/uL (1.4-4.0); Lymphocytes % 10.4 % (21.3-54.2); Mean Corpuscular HGB Conc 32.1 GM/DL (32-36); Mean Corpuscular Volume 100.4 FL (87-102); Mean Platelet Volume 8.9 FL (9.6-12.0); Monocytes % 6.1 % (1.7-12.7); NRBC # 0.04 10*3/uL; Neutrophils % 75.9 % (38.7-73.9); Platelet Count 862 T/CUMM (130-400); Red Cell Distribution Width 15.5 % (9.3-17.3); White Blood Count 10.1 T/CUMM (4-12)
[2019-08-31 16:31] LABS: Albumin 3.1 G/DL (3.4-5.0); Bilirubin,Total 1.2 MG/DL (0.2-1.0); Calcium 10.1 MG/DL (8.5-10.1); Osmolality,Calculated 277.4 MOS/KG (273-304); Total Protein 7.2 G/DL (6.4-8.3)
[2019-08-31] MEDS ORDERED: HYDROmorphone 2 MG/1 ML VIAL IV STA (16:34)
[2019-08-31] MEDS ORDERED: ONDANSETRON 4 MG/2 ML VIAL IV ONE (16:34)
[2019-08-31] MEDS ORDERED: HYDROmorphone 2 MG/1 ML VIAL ONE (16:35)
[2019-08-31 16:57] LABS: Band Neutrophils 4 % (0-10); Eosinophils 2 % (0-10); Lymphocytes 11 % (20-55); Myelocytes 1 %; Platelet Estimate Increased; Segmented Neutrophils 77 % (50-85); Total Cells Counted 100
[2019-08-31 16:58] LABS: Hypochromasia 1+; Macrocytosis 1+; Target Cells Few
[2019-08-31 17:01] LABS: Apearance,Urine CLEAR (Clear); Bilirubin,Urine Negative (Negative); Blood, Urine Negative (Negative); Glucose,Urine (UA) Negative (Negative); Ketones,Urine Negative (Negative); Mucus,Urine Occasional /LPF (Occasional); Nitrite,Urine Negative (Negative); Protein,Urine Negative; RBC,Urine 1 /HPF (0-4); Squamous Epithelial Cell,Urine Occasional /HPF (0-10); Urine Color Yellow (Yellow); Urine Urobilinogen < 2.0 EU/DL (0.2-1.0); WBC,Urine 1 /HPF (0-6)
[2019-08-31] MEDS: ALBUTEROL/IPRATROPIUM 3 ML NEB RESP TX SCH (19:39)
[2019-08-31] MEDS ORDERED: ENOXAPARIN 40 MG/0.4 ML SYRINGE SUBCUT SCH (21:00)
[2019-08-31] MEDS: DILTIAZEM CD 120 MG CAPSULE PO SCH (21:27)
[2019-08-31] MEDS: AMITRIPTYLINE 50 MG TABLET PO SCH (21:27)
[2019-08-31] MEDS: carvediloL 25 MG TABLET PO SCH (21:27)
[2019-08-31] MEDS: PILOCARPINE 5 MG TABLET PO SCH (21:30)
[2019-08-31] MEDS: METOCLOPRAMIDE 5 MG TABLET PO SCH (21:30)
[2019-08-31] MEDS: APIXABAN 5 MG TABLET PO SCH (21:30)
[2019-08-31] MEDS: SIMVASTATIN 10 MG TABLET PO SCH (21:31)
[2019-08-31] MEDS: cycloSPORINE OPH EMUL 1 VIAL BOTH EYES SCH (21:33)
[2019-08-31] MEDS: MORPHINE 4 MG/1 ML VIAL IV PRN (21:56)
[2019-09-01] MEDS: ALBUTEROL/IPRATROPIUM 3 ML NEB RESP TX SCH ×4 (00:31→19:50)
[2019-09-01] MEDS: MORPHINE 4 MG/1 ML VIAL IV PRN ×5 (04:21→20:41)
[2019-09-01 04:31] LABS: Basophils # 0.1 10*3/uL (0.0-0.2); Basophils % 0.5 % (0.0-0.8); Eosinophils # 0.1 10*3/uL (0.0-0.87); Hemoglobin 8.1 GM/DL (12.0-16.0); Immature Granulocytes % 5.1 %; Immature Granulocytes Absolute 0.48 #; Lymphocytes # 2.1 10*3/uL (1.4-4.0); Lymphocytes % 22.4 % (21.3-54.2); Mean Corpuscular HGB Conc 31.2 GM/DL (32-36); Mean Corpuscular Volume 101.2 FL (87-102); Mean Platelet Volume 8.8 FL (9.6-12.0); Monocytes % 6.7 % (1.7-12.7); NRBC # 0.06 10*3/uL; Neutrophils % 64.3 % (38.7-73.9); Platelet Count 804 T/CUMM (130-400); Red Blood Count 2.57 MC/CUMM (3.8-5.5); Red Cell Distribution Width 14.9 % (9.3-17.3); White Blood Count 9.4 T/CUMM (4-12)
[2019-09-01 04:56] LABS: Band Neutrophils 3 % (0-10); Eosinophils 1 % (0-10); Hypochromasia 1+; Lymphocytes 19 % (20-55); Macrocytosis 1+; Metamyelocytes 2 %; Myelocytes 1 %; Nucleated Red Blood Cells 2 (0-5); Segmented Neutrophils 71 % (50-85); Total Cells Counted 100
[2019-09-01 04:57] LABS: Polychromasia Slight
[2019-09-01 05:07] LABS: Albumin 2.8 G/DL (3.4-5.0); Bilirubin,Total 0.4 MG/DL (0.2-1.0); Calcium 9.7 MG/DL (8.5-10.1); Osmolality,Calculated 271.5 MOS/KG (273-304); Total Protein 6.4 G/DL (6.4-8.3)
[2019-09-01] MEDS: LEVOTHYROXINE 50 MCG TABLET PO SCH (06:06)
[2019-09-01] MEDS ORDERED: DROXIDOPA 200 MG PO SCH (09:00)
[2019-09-01] MEDS: METOCLOPRAMIDE 5 MG TABLET PO SCH ×2 (10:22→20:40)
[2019-09-01] MEDS: ESCITALOPRAM 10 MG TABLET PO SCH (10:22)
[2019-09-01] MEDS: APIXABAN 5 MG TABLET PO SCH ×2 (10:22→20:40)
[2019-09-01] MEDS: FENOFIBRATE 145 MG TABLET PO SCH (10:22)
[2019-09-01] MEDS: carvediloL 25 MG TABLET PO SCH ×2 (10:23→16:24)
[2019-09-01] MEDS: DILTIAZEM CD 120 MG CAPSULE PO SCH ×2 (10:23→20:56)
[2019-09-01] MEDS: PYRIDOSTIGMINE 60 MG TABLET PO SCH (10:24)
[2019-09-01] MEDS: predniSONE 5 MG TABLET PO SCH (10:24)
[2019-09-01] MEDS: PILOCARPINE 5 MG TABLET PO SCH ×4 (10:27→20:42)
[2019-09-01] MEDS: cycloSPORINE OPH EMUL 1 VIAL BOTH EYES SCH ×2 (10:28→20:43)
[2019-09-01] MEDS ORDERED: SODIUM CHLORIDE 0.9% 1,000 ML IV SCH (10:30)
[2019-09-01] MEDS: ONDANSETRON 4 MG/2 ML VIAL IV PRN ×3 (12:17→20:41)
[2019-09-01] MEDS: LACTATED RINGERS 1,000 ML IV SCH (16:33)
[2019-09-01] MEDS: SIMVASTATIN 10 MG TABLET PO SCH (20:42)
[2019-09-01] MEDS: AMITRIPTYLINE 50 MG TABLET PO SCH (20:56)
[2019-09-02] MEDS: LACTATED RINGERS 1,000 ML IV SCH ×3 (00:08→16:46)
[2019-09-02] MEDS: ONDANSETRON 4 MG/2 ML VIAL IV PRN ×4 (00:57→15:12)
[2019-09-02] MEDS: MORPHINE 4 MG/1 ML VIAL IV PRN ×5 (00:58→20:16)
[2019-09-02] MEDS: ALBUTEROL/IPRATROPIUM 3 ML NEB RESP TX SCH ×4 (01:08→19:33)
[2019-09-02 05:42] LABS: Basophils # 0.1 10*3/uL (0.0-0.2); Basophils % 0.5 % (0.0-0.8); Eosinophils # 0.1 10*3/uL (0.0-0.87); Eosinophils % 0.6 % (0.00-10.9); Hematocrit 27.3 VOL% (35.7-47.0); Hemoglobin 8.7 GM/DL (12.0-16.0); Immature Granulocytes % 5.2 %; Immature Granulocytes Absolute 0.51 #; Lymphocytes # 2.1 10*3/uL (1.4-4.0); Lymphocytes % 21.5 % (21.3-54.2); Mean Corpuscular HGB Conc 31.9 GM/DL (32-36); Mean Platelet Volume 8.6 FL (9.6-12.0); Monocytes % 6.7 % (1.7-12.7); NRBC # 0.05 10*3/uL; Neutrophils % 65.5 % (38.7-73.9); Platelet Count 783 T/CUMM (130-400); Red Blood Count 2.73 MC/CUMM (3.8-5.5); Red Cell Distribution Width 15.2 % (9.3-17.3); White Blood Count 9.8 T/CUMM (4-12)
[2019-09-02] MEDS: LEVOTHYROXINE 50 MCG TABLET PO SCH (05:49)
[2019-09-02 06:05] LABS: Band Neutrophils 3 % (0-10); Hypochromasia 1+; Lymphocytes 28 % (20-55); Macrocytosis 1+; Metamyelocytes 2 %; Nucleated Red Blood Cells 2 (0-5); Segmented Neutrophils 66 % (50-85); Total Cells Counted 100
[2019-09-02 06:06] LABS: Polychromasia Slight; Target Cells Slight
[2019-09-02 06:10] LABS: Calcium 9.7 MG/DL (8.5-10.1); Osmolality,Calculated 273.4 MOS/KG (273-304)
[2019-09-02 06:27] LABS: Albumin 2.8 G/DL (3.4-5.0); Bilirubin,Direct 0.19 MG/DL (0.0-0.20); Bilirubin,Indirect 0.6 MG/DL (0.0-1.0); Bilirubin,Total 0.8 MG/DL (0.2-1.0); Total Protein 6.6 G/DL (6.4-8.3)
[2019-09-02 06:30] LABS: Albumin 2.8 G/DL (3.4-5.0); Bilirubin,Total 0.8 MG/DL (0.2-1.0); Calcium 9.9 MG/DL (8.5-10.1); Osmolality,Calculated 271.5 MOS/KG (273-304); Total Protein 6.5 G/DL (6.4-8.3)
[2019-09-02] MEDS ORDERED: DEXTROSE 10% 250 ML BAG IV ONE (06:48)
[2019-09-02] MEDS: ESCITALOPRAM 10 MG TABLET PO SCH (09:46)
[2019-09-02] MEDS: APIXABAN 5 MG TABLET PO SCH ×2 (09:46→20:15)
[2019-09-02] MEDS: predniSONE 5 MG TABLET PO SCH (09:47)
[2019-09-02] MEDS: PYRIDOSTIGMINE 60 MG TABLET PO SCH (09:47)
[2019-09-02] MEDS: DILTIAZEM CD 120 MG CAPSULE PO SCH ×2 (09:47→20:15)
[2019-09-02] MEDS: carvediloL 25 MG TABLET PO SCH ×2 (09:47→17:04)
[2019-09-02] MEDS: METOCLOPRAMIDE 5 MG TABLET PO SCH ×2 (09:47→20:15)
[2019-09-02] MEDS: PILOCARPINE 5 MG TABLET PO SCH ×4 (09:47→20:16)
[2019-09-02] MEDS: FENOFIBRATE 145 MG TABLET PO SCH (09:48)
[2019-09-02] MEDS: cycloSPORINE OPH EMUL 1 VIAL BOTH EYES SCH ×2 (09:48→20:16)
[2019-09-02] MEDS: SIMVASTATIN 10 MG TABLET PO SCH (20:15)
[2019-09-02] MEDS: AMITRIPTYLINE 50 MG TABLET PO SCH (20:16)
[2019-09-03] MEDS: ONDANSETRON 4 MG/2 ML VIAL IV PRN ×2 (00:20→04:31)
[2019-09-03] MEDS: MORPHINE 4 MG/1 ML VIAL IV PRN ×2 (00:21→04:32)
[2019-09-03] MEDS: LACTATED RINGERS 1,000 ML IV SCH ×2 (00:21→08:29)
[2019-09-03] MEDS: ALBUTEROL/IPRATROPIUM 3 ML NEB RESP TX SCH ×2 (00:47→08:11)
[2019-09-03 05:15] LABS: Basophils % 0.3 % (0.0-0.8); Eosinophils # 0.1 10*3/uL (0.0-0.87); Eosinophils % 0.7 % (0.00-10.9); Hematocrit 28.2 VOL% (35.7-47.0); Hemoglobin 8.7 GM/DL (12.0-16.0); Immature Granulocytes % 2.7 %; Lymphocytes # 1.9 10*3/uL (1.4-4.0); Lymphocytes % 25.5 % (21.3-54.2); Mean Corpuscular HGB Conc 30.9 GM/DL (32-36); Mean Corpuscular Volume 101.4 FL (87-102); Mean Platelet Volume 8.6 FL (9.6-12.0); Monocytes % 8.6 % (1.7-12.7); NRBC # 0.02 10*3/uL; Neutrophils % 62.2 % (38.7-73.9); Platelet Count 753 T/CUMM (130-400); Red Blood Count 2.78 MC/CUMM (3.8-5.5); Red Cell Distribution Width 15.5 % (9.3-17.3); White Blood Count 7.4 T/CUMM (4-12)
[2019-09-03 06:01] LABS: Albumin 2.9 G/DL (3.4-5.0); Bilirubin,Total 0.6 MG/DL (0.2-1.0); Calcium 9.7 MG/DL (8.5-10.1); Osmolality,Calculated 276.3 MOS/KG (273-304); Total Protein 6.4 G/DL (6.4-8.3)
[2019-09-03] MEDS: LEVOTHYROXINE 50 MCG TABLET PO SCH (06:01)
[2019-09-03] MEDS: FENOFIBRATE 145 MG TABLET PO SCH (08:30)
[2019-09-03] MEDS: carvediloL 25 MG TABLET PO SCH (08:30)
[2019-09-03] MEDS: ESCITALOPRAM 10 MG TABLET PO SCH (08:30)
[2019-09-03] MEDS: PYRIDOSTIGMINE 60 MG TABLET PO SCH (08:30)
[2019-09-03] MEDS: METOCLOPRAMIDE 5 MG TABLET PO SCH (08:30)
[2019-09-03] MEDS: APIXABAN 5 MG TABLET PO SCH (08:30)
[2019-09-03] MEDS: DILTIAZEM CD 120 MG CAPSULE PO SCH (08:30)
[2019-09-03] MEDS: predniSONE 5 MG TABLET PO SCH (08:30)
[2019-09-03] MEDS: cycloSPORINE OPH EMUL 1 VIAL BOTH EYES SCH (08:31)
[2019-09-03 10:07] VITALS: BP 173/78
[2019-09-03] MEDS: PILOCARPINE 5 MG TABLET PO SCH (10:44)
== END 2019-09-03 13:10 | disposition home health service (06) | DRG 439 ==
LOC: N.ED 14:42 → N.EDINP 18:04 → SUATTDRO 18:04 → N.EDINP 18:45 → N.3E 19:06
PROVIDERS: ADMIT Emergency Medicine; ATTEND Internal Medicine